=== PATIENT | male | born 1995 | race Caucasian/White ===

== ENCOUNTER 2017-02-24 04:41 | Observation (INO) | payer MEDICAID, OTHER ==
[~2017-02-24] VITALS: Ht 172.7 cm; Wt 75.0 kg
[2017-02-24 05:27] LABS: BASOPHILS # (AUTO) 0.04 x10^3/uL (0-0.1); BASOPHILS % (AUTO) 1 % (0-1); EOSINOPHILS # (AUTO) 0.06 x10^3/uL (0-0.4); EOSINOPHILS % (AUTO) 1 % (1-7); LYMPHOCYTES % (AUTO) 36 % (22-44); MD NO; MEAN CORPUSCULAR HEMOGLOBIN 31.4 pg (27.5-34.5); MEAN CORPUSCULAR HGB CONC 34.4 g/dL (33.2-36.2); MEAN CORPUSCULAR VOLUME 91.2 fL (81-97); MONOCYTES # (AUTO) 0.52 x10^3/uL (0.2-0.8); MONOCYTES % (AUTO) 8 % (2-9); NEUTROPHILS # (AUTO) 3.81 x10^3/uL (1.8-6.8); NEUTROPHILS % (AUTO) 55 % (42-75); PLATELET COUNT 281 x10^3/uL (130-400); RED BLOOD COUNT 4.94 x10^6/uL (4.38-5.82); RED CELL DISTRIBUTION WIDTH 14.3 % (9.4-14.8)
[2017-02-24 05:43] LABS: ALANINE AMINOTRANSFERASE 19 U/L (12-78); ALBUMIN 3.8 g/dL (3.4-5.0); ANION GAP 10 mmol/L (5-15); CALCIUM 8.6 mg/dL (8.5-10.1); CHLORIDE 107 mmol/L (98-107); CREATININE 0.82 mg/dL (0.7-1.3)
[2017-02-24 05:45] LABS: ALKALINE PHOSPHATASE 80 U/L (45-117); BILIRUBIN,TOTAL 0.9 mg/dL (0.2-1.0); TOTAL PROTEIN 7.2 g/dL (6.4-8.2)
[2017-02-24 05:46] LABS: ACETAMINOPHEN < 2 mcg/mL (10-30); SALICYLATE LEVEL < 1.7 mg/dL (2.8-20.0)
[2017-02-24 05:50] LABS: AMPHETAMINE SCREEN, URINE Positive (Negative); BARBITURATE SCREEN, URINE Negative (Negative); BENZODIAZEPINE SCREEN, URINE Negative (Negative); CANNABINOID SCREEN, URINE Positive (Negative); COCAINE SCREEN, URINE Negative (Negative); METHADONE SCREEN, URINE Negative (Negative); OPIATE SCREEN, URINE Negative (Negative)
[2017-02-24] MEDS ORDERED: BACITRACIN ZINC OINT 500U/GM, 0.9 GM ONE ×2 (06:45→17:21)
[2017-02-24] MEDS ORDERED: ONDANSETRON ODT 4 MG PO PRN (08:00)
[2017-02-24] MEDS ORDERED: ACETAMINOPHEN 325 MG TABLET PO PRN (08:00)
[2017-02-24] MEDS ORDERED: POTASSIUM CHLORIDE 20 MEQ TAB.ER.PRT PO ONE (08:00)
[2017-02-24] MEDS ORDERED: POTASSIUM CHLORIDE 20 MEQ TAB.ER.PRT ONE (19:15)
[2017-02-24] MEDS: HALOPERIDOL 5 MG TABLET PO PRN (20:26)
[2017-02-25 14:28] VITALS: BP 107/70
[2017-02-25 20:00] VITALS: BP 99/62
[2017-02-26 08:21] VITALS: BP 84/49
[2017-02-26 19:24] VITALS: BP 127/85
[2017-02-26] MEDS: HALOPERIDOL 5 MG TABLET PO PRN (19:25)
[2017-02-27 07:55] VITALS: BP 97/62
[2017-02-27 19:35] VITALS: BP 150/94
[2017-02-27 20:51] VITALS: BP 120/76
[2017-02-28 08:15] VITALS: BP 101/67
[2017-02-28 19:23] VITALS: BP 115/64
[2017-03-01 08:00] VITALS: BP 95/59
[2017-03-01 19:41] VITALS: BP 101/57
[2017-03-01] MEDS: HALOPERIDOL 5 MG TABLET PO PRN (21:19)
[2017-03-01] MEDS ORDERED: QUETIAPINE 25MG TABLET ONE (23:06)
[2017-03-01] MEDS ORDERED: QUETIAPINE 25MG TABLET PO ONE (23:30)
[2017-03-02 08:15] VITALS: BP 97/60
[2017-03-02 19:27] VITALS: BP 108/68
[2017-03-02] MEDS ORDERED: RISPERIDONE 2 MG TABLET PO SCH (21:00)
[2017-03-03 08:46] VITALS: BP 117/69
== END 2017-03-03 13:28 ==
LOC: ED 06:45 → EDIP 06:59 → 2N 02-25 14:20
PROVIDERS: ADMIT Hospitalist; ATTEND Internal Medicine
DX: R45.851 Suicidal ideations (principal); F20.0 Paranoid schizophrenia; F19.959 Other psychoactive substance use, unspecified with psychoactive substance-induced psychotic disorder, unspecified; F17.200 Nicotine dependence, unspecified, uncomplicated; Z91.14 Patient's other noncompliance with medication regimen; Z91.19 Patient's noncompliance with other medical treatment and regimen; Z91.5 Personal history of self-harm
CPT/HCPCS: 36415; 80053; 80307; 80329; 85025; 99285; G0378; G0479; G0480

== ENCOUNTER 2018-04-13 15:02 | Emergency (ER) | payer MEDICAID, OTHER ==
[~2018-04-13] VITALS: Ht 170.2 cm; Wt 69.0 kg
[2018-04-13 15:30] VITALS: BP 126/85
[2018-04-13 15:47] LABS: BASOPHILS # (AUTO) 0.01 x10^3/uL (0-0.1); BASOPHILS % (AUTO) 0 % (0-1); EOSINOPHILS # (AUTO) 0.06 x10^3/uL (0-0.4); EOSINOPHILS % (AUTO) 1 % (1-7); LYMPHOCYTES # (AUTO) 2.26 x10^3/uL (1-3.4); LYMPHOCYTES % (AUTO) 25 % (22-44); MD NO; MEAN CORPUSCULAR HEMOGLOBIN 30.9 pg (27.5-34.5); MEAN CORPUSCULAR HGB CONC 33.3 g/dL (33.2-36.2); MEAN PLATELET VOLUME 9.4 fL (7.4-10.4); MONOCYTES # (AUTO) 0.54 x10^3/uL (0.2-0.8); MONOCYTES % (AUTO) 6 % (2-9); NEUTROPHILS # (AUTO) 6.04 x10^3/uL (1.8-6.8); NEUTROPHILS % (AUTO) 68 % (42-75); PLATELET COUNT 266 x10^3/uL (130-400); RED BLOOD COUNT 5.29 x10^6/uL (4.38-5.82); RED CELL DISTRIBUTION WIDTH 14.6 % (9.4-14.8)
[2018-04-13 15:58] LABS: ALANINE AMINOTRANSFERASE 22 U/L (12-78); ALBUMIN 4.1 g/dL (3.4-5.0); ANION GAP 5 mmol/L (5-15); CALCIUM 8.8 mg/dL (8.5-10.1); CHLORIDE 106 mmol/L (98-107); CREATININE 0.84 mg/dL (0.7-1.3)
--- NOTE | 2018-04-13 15:58 | NUR ---
VOIDED URINE SPECIMEN PROVIDED. PT AMBUALTORY TO ED ROOM W/OUT INCIDENT, GAIT STEADY. PRISCILA MCCAIN NOW AT BS FOR EXAM.
[2018-04-13 15:59] LABS: ALKALINE PHOSPHATASE 101 U/L (45-117); BILIRUBIN,TOTAL 0.6 mg/dL (0.2-1.0); TOTAL PROTEIN 7.6 g/dL (6.4-8.2)
[2018-04-13 16:00] LABS: ACETAMINOPHEN < 2 mcg/mL (10-30); SALICYLATE LEVEL < 1.7 mg/dL (2.8-20.0)
--- NOTE | 2018-04-13 16:01 | NUR ---
ROOM WAS SECURED, PERSONAL BELONGINGS BAGGED & PLACED IN LOCKER BY MADAI MOON PER KENZIE MOON'S WALLET & CELL PHONE IN WITH BAGGED ITEMS.
--- NOTE | 2018-04-13 16:29 | NUR ---
ASSUMED CARE OF PT, PT RESTING IN BED, ASSESSMENT COMPLETE. PT AOX4 C/O SUICIDAL THOUGHTS WITH PLAN TO CUT WRISTS BUT DENIES FEELING SI AT THIS MOMENT. MEAL TRAY ORDERED. PT STATES HE HAS HX OF SCHIZOPHRENIA, HAS BEEN USING METH, HAS NOT BEEN TAKING HIS ABILIFY.
[2018-04-13 16:40] LABS: AMPHETAMINE SCREEN, URINE Positive (Negative); BARBITURATE SCREEN, URINE Negative (Negative); BENZODIAZEPINE SCREEN, URINE Negative (Negative); CANNABINOID SCREEN, URINE Positive (Negative); COCAINE SCREEN, URINE Negative (Negative); METHADONE SCREEN, URINE Negative (Negative); OPIATE SCREEN, URINE Negative (Negative)
--- NOTE | 2018-04-13 18:31 | NUR ---
NANO HARRIS AT BEDSIDE TO FORM POC, DIET TRAY ORDERED
[2018-04-13] MEDS ORDERED: ZIPRASIDONE 20 MG INJ IM ONE ×2 (19:00→19:46)
== END 2018-04-13 20:03 | disposition home or self-care (01) ==
LOC: ED 19:57
DX: F20.89 Other schizophrenia (principal); F32.9 Major depressive disorder, single episode, unspecified; F15.10 Other stimulant abuse, uncomplicated; F17.200 Nicotine dependence, unspecified, uncomplicated; Z72.9 Problem related to lifestyle, unspecified; Z75.9 Unspecified problem related to medical facilities and other health care; Z91.14 Patient's other noncompliance with medication regimen
CPT/HCPCS: 36415; 80053; 80307; 80329; 85025; 99283; 99284; G0480

== ENCOUNTER 2018-05-30 01:09 | Inpatient (IN) | payer MEDICAID ==
[~2018-05-30] VITALS: Ht 170.2 cm; Wt 68.5 kg
[2018-05-30] MEDS ORDERED: LORazepam 1MG TABLET PO ONE (01:30)
[2018-05-30 01:35] LABS: BASOPHILS # (AUTO) 0.04 x10^3/uL (0-0.1); BASOPHILS % (AUTO) 0 % (0-1); EOSINOPHILS # (AUTO) 0.08 x10^3/uL (0-0.4); EOSINOPHILS % (AUTO) 1 % (1-7); LYMPHOCYTES # (AUTO) 2.79 x10^3/uL (1-3.4); LYMPHOCYTES % (AUTO) 27 % (22-44); MD NO; MEAN CORPUSCULAR HEMOGLOBIN 31.8 pg (27.5-34.5); MEAN CORPUSCULAR HGB CONC 34.5 g/dL (33.2-36.2); MEAN CORPUSCULAR VOLUME 92.1 fL (81-97); MEAN PLATELET VOLUME 9.4 fL (7.4-10.4); MONOCYTES # (AUTO) 0.92 x10^3/uL (0.2-0.8); MONOCYTES % (AUTO) 9 % (2-9); NEUTROPHILS # (AUTO) 6.43 x10^3/uL (1.8-6.8); NEUTROPHILS % (AUTO) 63 % (42-75); PLATELET COUNT 259 x10^3/uL (130-400); RED CELL DISTRIBUTION WIDTH 14.4 % (9.4-14.8)
[2018-05-30] MEDS ORDERED: LORazepam 1MG TABLET ONE ×2 (01:40→22:51)
--- NOTE | 2018-05-30 01:45 | NUR ---
pt here for hearing voices. Pt sas he is tired of hearing them. vss. Pt denies SI/HI. says voices sometimes tells him to harm himself but he doesnt listen. Pt changing into gown and belongings secured.
[2018-05-30 01:46] LABS: ALBUMIN 4.5 g/dL (3.4-5.0); ANION GAP 8 mmol/L (5-15); CALCIUM 8.7 mg/dL (8.5-10.1); CHLORIDE 105 mmol/L (98-107)
[2018-05-30 01:48] LABS: SALICYLATE LEVEL < 1.7 mg/dL (2.8-20.0)
[2018-05-30 01:49] LABS: ALANINE AMINOTRANSFERASE 62 U/L (12-78); ALKALINE PHOSPHATASE 96 U/L (45-117); BILIRUBIN,TOTAL 1.4 mg/dL (0.2-1.0); CREATININE 0.85 mg/dL (0.7-1.3); TOTAL PROTEIN 7.6 g/dL (6.4-8.2)
[2018-05-30 01:52] LABS: ACETAMINOPHEN < 2 mcg/mL (10-30)
--- NOTE | 2018-05-30 03:01 | NUR ---
PT ATTEMPTED TO GIVE UA BUT WAS UNABLE TO URINATE. PT GIVEN WATER AND HE WILL TRY AGAIN.
--- NOTE | 2018-05-30 04:04 | NUR ---
UA SENT TO LAB. PT SLEEPING WITH NO NEEDS AT THIS TIME. CALL LIGHT IN REACH
[2018-05-30 04:29] LABS: AMPHETAMINE SCREEN, URINE Positive (Negative); BARBITURATE SCREEN, URINE Negative (Negative); BENZODIAZEPINE SCREEN, URINE Negative (Negative); CANNABINOID SCREEN, URINE Positive (Negative); COCAINE SCREEN, URINE Negative (Negative); METHADONE SCREEN, URINE Negative (Negative); OPIATE SCREEN, URINE Negative (Negative)
--- NOTE | 2018-05-30 05:00 | NUR ---
PT SLEEPING. PT IN NAD. EVEN RISE AND FALL OF CHEST OBSERVED. PT AROUSES TO VOICE. WAITING TO BE EVALUATED BY TELEPSYCH.
--- NOTE | 2018-05-30 06:02 | NUR ---
PT SLEEPING. PT IN NAD. EVEN RISE AND FALL OF CHEST OBSERVED. PT AROUSES TO VOICE. WAITING TO BE EVALUATED BY TELEPSYCH.
--- NOTE | 2018-05-30 06:15 | NUR ---
REPORT TO SOC. CAMERA AT BEDSIDE. PT INFORMED THAT SOC WILL EVALUATE PT.
--- NOTE | 2018-05-30 06:39 | NUR ---
PT UNABLE TO STAY AWAKE FOR EVALUATION BY SOC. PT TO BE RE EVALUATED IN A FEW HOURS. AWARE
--- NOTE | 2018-05-30 06:50 | NUR ---
Assumed c/o pt from MADAI Jackson. Pt sleeping at this time, awakens to V. Telepsych unit removed from room & will attempt consult again when pt able to stay awake. VS checked, meal tray ordered.
--- NOTE | 2018-05-30 07:45 | NUR ---
Meal tray delivered, pt awakens easily to V. Cooperative at this time.
--- NOTE | 2018-05-30 08:31 | NUR ---
SOC contacted for telepsych eval. Pt is in queue.
--- NOTE | 2018-05-30 10:12 | NUR ---
Telepsych consult complete
--- NOTE | 2018-05-30 10:35 | NUR ---
Recommendation from psychiatrist for inpatient psych admission due to pt now stating he is suicidal & has been depressed & was not being forthcoming with staff here when asked.
--- NOTE | 2018-05-30 10:57 | NUR ---
PACKET FAXED TO [facility] AND [facility]
[2018-05-30] MEDS ORDERED: IBUPROFEN 600 MG TABLET PO PRN (11:30)
[2018-05-30] MEDS ORDERED: OLANZAPINE 10 MG TABLET PO PRN (11:30)
[2018-05-30] MEDS ORDERED: POLYETHYLENE GLYCOL 17 GM PACKET PO PRN (11:30)
[2018-05-30] MEDS ORDERED: ONDANSETRON ODT 4 MG PO PRN (11:30)
[2018-05-30] MEDS ORDERED: BISACODYL 10 MG SUPP PR PRN (11:30)
--- NOTE | 2018-05-30 11:39 | NUR ---
Labs being drawn, pt remains cooperative. Meal tray ordered.
[2018-05-30 11:59] LABS: BASOPHILS # (AUTO) 0.13 x10^3/uL (0-0.1); BASOPHILS % (AUTO) 2 % (0-1); EOSINOPHILS # (AUTO) 0.19 x10^3/uL (0-0.4); EOSINOPHILS % (AUTO) 3 % (1-7); LYMPHOCYTES # (AUTO) 2.58 x10^3/uL (1-3.4); LYMPHOCYTES % (AUTO) 41 % (22-44); MD NO; MEAN CORPUSCULAR HEMOGLOBIN 32.1 pg (27.5-34.5); MEAN CORPUSCULAR HGB CONC 34.4 g/dL (33.2-36.2); MEAN CORPUSCULAR VOLUME 93.2 fL (81-97); MEAN PLATELET VOLUME 9.5 fL (7.4-10.4); MONOCYTES # (AUTO) 0.89 x10^3/uL (0.2-0.8); MONOCYTES % (AUTO) 14 % (2-9); NEUTROPHILS # (AUTO) 2.58 x10^3/uL (1.8-6.8); NEUTROPHILS % (AUTO) 41 % (42-75); PLATELET COUNT 239 x10^3/uL (130-400); RED BLOOD COUNT 4.99 x10^6/uL (4.38-5.82); RED CELL DISTRIBUTION WIDTH 14.4 % (9.4-14.8)
[2018-05-30 12:14] LABS: ANION GAP 6 mmol/L (5-15); CALCIUM 8.9 mg/dL (8.5-10.1); CHLORIDE 104 mmol/L (98-107); CREATININE 0.76 mg/dL (0.7-1.3)
--- NOTE | 2018-05-30 12:22 | NUR ---
Pt moved to 41 for sitter observation. SBAR to MADAI Tolbert.
--- NOTE | 2018-05-30 12:25 | NUR ---
Pt moved to rm 41 from rm 2, report from Ewa AJ. Pt resting in bed with eyes closed, resp even and unlabored, NADN. Room is secured, sitter within eyesight of pt, all safety measures observed.
--- NOTE | 2018-05-30 12:40 | NUR ---
REPORT RECEIVED FROM RAFI AJ. PATIENT ON LEGAL HOLD FOR SUICIDAL IDEATION. ROOM SECURED W/ PSYCH PRECAUTIONS. 1:1 SITTER AT BEDSIDE PATIENT DOES NOT APPEAR ANXIOUS OR INTOXICATED. DOES ADMIT TO INTERMITTENT METH USE. DENIES COMPLAINTS AT THIS TIME. HOWEVER HE DOES REPORT HE IS SUICIDAL WITHOUT PLAN. REPORT " I FEEL OVERWHELMED" GPROVIDED WITH SUICIDE PRECAUTIONS LUNCH TRAY
--- NOTE | 2018-05-30 13:30 | NUR ---
PATIENT A LEGAL HOLD FOR SUICIDAL IDEATION. ROOM SECURED W/ PSYCH PRECAUTIONS 1:1 SITTER AT BEDSIDE
--- NOTE | 2018-05-30 14:45 | NUR ---
PATIENT A LEGAL HOLD FOR SUICIDAL IDEATION. ROOM SECURED W/ PSYCH PRECAUTIONS 1:1 SITTER AT BEDSIDE
--- NOTE | 2018-05-30 15:50 | NUR ---
PATIENT A LEGAL HOLD FOR SUICIDAL IDEATION. ROOM SECURED W/ PSYCH PRECAUTIONS 1:1 SITTER AT BEDSIDE
--- NOTE | 2018-05-30 17:20 | NUR ---
PATIENT A LEGAL HOLD FOR SUICIDAL IDEATION. ROOM SECURED W/ PSYCH PRECAUTIONS 1:1 SITTER AT BEDSIDE
--- NOTE | 2018-05-30 19:20 | NUR ---
PATIENT A LEGAL HOLD FOR SUICIDAL IDEATION. ROOM SECURED W/ PSYCH PRECAUTIONS 1:1 SITTER AT BEDSIDE REPORT TO ROSINA AJ
--- NOTE | 2018-05-30 19:58 | NUR ---
PT RESTING IN GURNEY, AWAKENS EASILY. DRINKS PROVIDED, DENIES OTHER NEEDS AT THIS TIME.
[2018-05-30] MEDS ORDERED: NICOTINE 7 MG/24 HR PATCH.TD24 ONE (21:06)
[2018-05-30] MEDS: NICOTINE 7 MG/24 HR PATCH.TD24 TD SCH (21:10)
--- NOTE | 2018-05-30 21:10 | NUR ---
NICOTINE PATCH APPLIED, SEE MAR. NO OTHER NEEDS AT THIS TIME.
--- NOTE | 2018-05-30 22:25 | NUR ---
SNACKS AND DRINKS PROVIDED TO PT. NO OTHER NEEDS AT THIS TIME.
--- NOTE | 2018-05-30 22:46 | NUR ---
PT WAS UP AMBULATING IN ROOM, STATES HE FEELS ANXIOUS & UNABLE TO SLEEP. WILL MEDICATE WITH ATIVAN PER PRN ORDERS.
[2018-05-30] MEDS: LORazepam 1MG TABLET PO PRN (22:53)
[2018-05-30] MEDS ORDERED: ATIVAN PO (23:00)
[2018-05-30] MEDS ORDERED: OLAN10TA3 PO (23:00)
--- NOTE | 2018-05-31 00:09 | NUR ---
PT SLEEPING IN [facility], BREATHING WNL.
--- NOTE | 2018-05-31 01:15 | NUR ---
PT SLEEPING IN BED, BREATHING WNL.
--- NOTE | 2018-05-31 02:53 | NUR ---
NO CHANGE IN STATUS; PT RESTING QUIETLY IN BED, BREATHING WNL, SITTER OUTSIDE ROOM.
--- NOTE | 2018-05-31 03:22 | NUR ---
LATE NOTE ENTERY FOR 299: Recieved bedside report from MADAI Lara. All questions answered. Assuming care of pt. Pt sleeping on gurney. Pt has even chest rise and fall. NADN. All safety measures in place. Sitter near doorway in direct line of sight for observation.
--- NOTE | 2018-05-31 04:43 | NUR ---
Pt resting on hospital bed sleeping. NADN. Pt has even chest rise and fall. No needs expressed at this time. Sitter near doorway in direct line of sight for observation.
--- NOTE | 2018-05-31 05:54 | NUR ---
Pt resting asleep on hospital bed. NADN. Pt has even chest rise and fall. Sitter near doorway in direct line of sight for observation.
--- NOTE | 2018-05-31 06:24 | NUR ---
REPORT RECEIVED FROM MADAI MOON, ASSUMED CARE OF PT. PT MOVED TO ROOM 3, SITTER OTSIDE DOOR WITHIN VIEW OF PT
--- NOTE | 2018-05-31 06:24 | NUR ---
Provided report to MADAI Palacios. All questions answered. MADAI Palacios assuming care of pt. Pt transfered from ED room 41 to ED room 3 on hospital bed.
--- NOTE | 2018-05-31 07:01 | NUR ---
RECEIVED REPORT FROM TASIA FUNG RN.
--- NOTE | 2018-05-31 07:42 | NUR ---
PT RESTING IN BED. NADN. SITTER REMAINS AT BEDSIDE. ROOM REMAINS SECURE.
--- NOTE | 2018-05-31 08:30 | NUR ---
PT RESTING IN BED. PROVIDED W/ BREAKFAST MEAL TRAY. BRUCE. SITTER REMAINS AT BEDSIDE. ROOM REMAINS SECURE.
--- NOTE | 2018-05-31 09:29 | NUR ---
PT RESTING IN BED. NADN. SITTER REMAINS AT BEDSIDE. ROOM REMAINS SECURE.
--- NOTE | 2018-05-31 10:51 | NUR ---
PT RESTING IN BED. NADN. SITTER REMAINS AT BEDSIDE. ROOM REMAINS SECURE.
[2018-05-31] MEDS ORDERED: NICOTINE 7 MG/24 HR PATCH.TD24 ONE (11:53)
[2018-05-31] MEDS: NICOTINE 7 MG/24 HR PATCH.TD24 TD SCH (11:53)
--- NOTE | 2018-05-31 12:02 | NUR ---
PT RESTING IN BED. NADN. SITTER AT BEDSIDE. ROOM REMAINS SECURE. PT MEDICATED PER APR.
--- NOTE | 2018-05-31 12:39 | NUR ---
PT PROVIDED W/ LUNCH TRAY. PT RESTING IN BED. SITTER REMAINS AT BEDSIDE. ROOM REMAINS SECURE.
--- NOTE | 2018-05-31 13:17 | NUR ---
PT RESTING IN BED. NADN. SITTER AT BEDSIDE. ROOM REMAINS SECURE.
--- NOTE | 2018-05-31 15:20 | NUR ---
PT RESTING IN BED. NADN. SITTER AT BEDSIDE. ROOM REMAINS SECURE. PT MEDICATED PER APR. PROVIDED W/ SNACK.
--- NOTE | 2018-05-31 16:36 | NUR ---
REPORT GIVEN TO NAV MAN RN. ALL QUESTIONS ANSWERED. AWAITING PT TRANSPORT.
--- NOTE | 2018-05-31 16:43 | NUR ---
PT PROVIDED W/ DINNER TRAY. PT ALSO TRANSPORTED TO RM 261.
[2018-05-31 16:45] VITALS: BP 112/68
[2018-05-31 17:16] VITALS: BP 112/68
[2018-05-31 19:06] VITALS: BP 93/54
[2018-05-31] MEDS: LORazepam 1MG TABLET PO PRN (20:02)
[2018-06-01] MEDS: LORazepam 1MG TABLET PO PRN ×2 (04:07→21:37)
[2018-06-01 08:59] VITALS: BP 111/76
[2018-06-01] MEDS: NICOTINE 7 MG/24 HR PATCH.TD24 TD SCH (11:30)
[2018-06-01 19:54] VITALS: BP 101/61
[2018-06-02 06:35] LABS: ALANINE AMINOTRANSFERASE 31 U/L (12-78); ALBUMIN 3.6 g/dL (3.4-5.0); ANION GAP 6 mmol/L (5-15); CALCIUM 8.4 mg/dL (8.5-10.1); CHLORIDE 107 mmol/L (98-107); CREATININE 0.71 mg/dL (0.7-1.3)
[2018-06-02 06:38] LABS: ALKALINE PHOSPHATASE 94 U/L (45-117); BILIRUBIN,TOTAL 0.4 mg/dL (0.2-1.0); TOTAL PROTEIN 6.4 g/dL (6.4-8.2)
[2018-06-02 07:52] VITALS: BP 102/64
[2018-06-02] MEDS: LORazepam 1MG TABLET PO PRN ×3 (11:47→23:20)
[2018-06-02] MEDS: NICOTINE 7 MG/24 HR PATCH.TD24 TD SCH (11:47)
[2018-06-02 19:12] VITALS: BP 108/63
[2018-06-03 07:38] VITALS: BP 90/56
[2018-06-03] MEDS: LORazepam 1MG TABLET PO PRN (09:32)
[2018-06-03] MEDS: NICOTINE 7 MG/24 HR PATCH.TD24 TD SCH (11:38)
[2018-06-03] MEDS ORDERED: NICO-485 TD (12:03)
== END 2018-06-03 13:30 | DRG 885 ==
LOC: ED 07:33 → EDIP 10:40 → INTOOBSV 10:40 → OBSVTOIN 11:38 → 2N 05-31 16:47
PROVIDERS: ADMIT Internal Medicine; ATTEND Internal Medicine
DX: F25.9 Schizoaffective disorder, unspecified (principal); F32.0 Major depressive disorder, single episode, mild; R17 Unspecified jaundice; R45.851 Suicidal ideations; F15.151 Other stimulant abuse with stimulant-induced psychotic disorder with hallucinations; F12.90 Cannabis use, unspecified, uncomplicated; F17.210 Nicotine dependence, cigarettes, uncomplicated; R45.84 Anhedonia; T43.625A Adverse effect of amphetamines, initial encounter; Y92.89 Other specified places as the place of occurrence of the external cause; Z81.8 Family history of other mental and behavioral disorders; Z63.8 Other specified problems related to primary support group
CPT/HCPCS: 36415; 80048; 80053; 80307; 80329; 85025; 99285; G0378; G0480

== ENCOUNTER 2018-07-13 17:27 | Emergency (ER) | payer MEDICAID ==
[~2018-07-13 17:27] MED LIST: ATIVAN PO; NICO-485 TD; OLAN10TA3 PO
--- NOTE | 2018-07-13 18:08 | NUR ---
NIL X1
--- NOTE | 2018-07-13 18:25 | NUR ---
NIL X2@1825 IN TRIAGE.
--- NOTE | 2018-07-13 18:35 | NUR ---
NIL X2@1835 IN TRIAGE.
== END 2018-07-13 18:38 | disposition left against medical advice (07) ==
LOC: ED 18:32
DX: Z53.21 Procedure and treatment not carried out due to patient leaving prior to being seen by health care provider (principal)

== ENCOUNTER 2018-07-14 08:10 | Inpatient (IN) | payer MEDICAID ==
[~2018-07-14] VITALS: Ht 170.2 cm; Wt 74.9 kg
--- NOTE | 2018-07-14 08:52 | NUR ---
PT AMBULATORY TO ROOM 2 W/ C/O PARANOIA AND STATING THAT SOMETIMES H HEARS VOICES AND PEOPLE ARE TALKING ABOUT HIM. PT DENIES SI/HI. STATES HE IS ON THORAZINE BUT MEDICATION IS NOT WORKING. PT RESTING AT [facility]. BRUCE.
[2018-07-14] MEDS ORDERED: LORazepam 1MG TABLET PO ONE (09:00)
--- NOTE | 2018-07-14 09:04 | NUR ---
ROOM SECURED. PERSONAL BELONGINGS BAG 1 OF 1 PLACED IN SECURE LOCKER.
[2018-07-14 09:19] LABS: BASOPHILS # (AUTO) 0.05 x10^3/uL (0-0.1); BASOPHILS % (AUTO) 1 % (0-1); EOSINOPHILS # (AUTO) 0.07 x10^3/uL (0-0.4); EOSINOPHILS % (AUTO) 1 % (1-7); LYMPHOCYTES # (AUTO) 2.56 x10^3/uL (1-3.4); LYMPHOCYTES % (AUTO) 26 % (22-44); MD NO; MEAN CORPUSCULAR HGB CONC 34.7 g/dL (33.2-36.2); MEAN CORPUSCULAR VOLUME 92.1 fL (81-97); MEAN PLATELET VOLUME 8.9 fL (7.4-10.4); MONOCYTES # (AUTO) 0.65 x10^3/uL (0.2-0.8); MONOCYTES % (AUTO) 7 % (2-9); NEUTROPHILS # (AUTO) 6.46 x10^3/uL (1.8-6.8); NEUTROPHILS % (AUTO) 66 % (42-75); PLATELET COUNT 274 x10^3/uL (130-400); RED BLOOD COUNT 5.28 x10^6/uL (4.38-5.82); RED CELL DISTRIBUTION WIDTH 13.7 % (9.4-14.8)
[2018-07-14 09:30] LABS: ALBUMIN 4.4 g/dL (3.4-5.0); ANION GAP 7 mmol/L (5-15); CALCIUM 8.5 mg/dL (8.5-10.1); CHLORIDE 106 mmol/L (98-107)
[2018-07-14 09:33] LABS: ACETAMINOPHEN < 2 mcg/mL (10-30); SALICYLATE LEVEL < 1.7 mg/dL (2.8-20.0)
[2018-07-14 09:34] LABS: BILIRUBIN,TOTAL 0.8 mg/dL (0.2-1.0); CREATININE 0.68 mg/dL (0.7-1.3)
[2018-07-14 09:35] LABS: ALANINE AMINOTRANSFERASE 26 U/L (12-78); ALKALINE PHOSPHATASE 105 U/L (45-117); TOTAL PROTEIN 7.7 g/dL (6.4-8.2)
--- NOTE | 2018-07-14 09:36 | NUR ---
PT ATTEMPTED TO PROVIDE UA SAMPLE. UNABLE TO DO SO AT THIS TIME.
[2018-07-14] MEDS ORDERED: LORazepam 1MG TABLET ONE (09:40)
--- NOTE | 2018-07-14 10:03 | NUR ---
UA COLLECTED, LABELED, AND WALKED TO LAB. SITTER NOW AT BEDSIDE.
--- NOTE | 2018-07-14 10:16 | NUR ---
PT PROVIDED W/ SI BREAKFAST MEAL TRAY.
[2018-07-14 10:25] LABS: AMPHETAMINE SCREEN, URINE Negative (Negative); BARBITURATE SCREEN, URINE Negative (Negative); BENZODIAZEPINE SCREEN, URINE Negative (Negative); CANNABINOID SCREEN, URINE Negative (Negative); COCAINE SCREEN, URINE Negative (Negative); METHADONE SCREEN, URINE Negative (Negative); OPIATE SCREEN, URINE Negative (Negative)
--- NOTE | 2018-07-14 11:41 | NUR ---
REPORT GIVEN TO MADAI BLISS.
--- NOTE | 2018-07-14 11:43 | NUR ---
REPORT FROM MADAI AHUMADA. CARE ASSUMED. SOC COMPUTER AT BEDSIDE FOR PETERD[facility] NAAASHLY IN [facility].
--- NOTE | 2018-07-14 11:58 | NUR ---
REPORT TO SOC
--- NOTE | 2018-07-14 12:10 | NUR ---
SOC SPEAKING W/ PT.
--- NOTE | 2018-07-14 13:30 | NUR ---
RESTING COMFORTABLY IN ROOM. LUNCH TRAY TO PT. SITTER REMAINS IN HALLWAY.
--- NOTE | 2018-07-14 15:15 | NUR ---
Spoke to MADAI Mcgarry for an SBAR report, she stated that the hospitalist was currently at bedside.
[2018-07-14] MEDS ORDERED: BISACODYL 10 MG SUPP PR PRN (15:30)
[2018-07-14] MEDS ORDERED: POLYETHYLENE GLYCOL 17 GM PACKET PO PRN (15:30)
--- NOTE | 2018-07-14 15:32 | NUR ---
Called and gave them room #261
[2018-07-14] MEDS ORDERED: LORazepam 0.5MG TABLET ONE (15:35)
[2018-07-14] MEDS: LORazepam 0.5MG TABLET PO PRN ×3 (15:36→20:49)
[2018-07-14 16:04] VITALS: BP 122/81
[2018-07-14] MEDS: NICOTINE 14MG/24 HR PATCH.TD24 TD SCH (16:18)
[2018-07-14 19:55] VITALS: BP 130/85
[2018-07-14] MEDS ORDERED: OLANZAPINE 10 MG TABLET PO SCH (21:00)
[2018-07-15 07:52] VITALS: BP 123/88
[2018-07-15] MEDS ORDERED: BENZ1TAB61 PO (15:46)
[2018-07-15] MEDS ORDERED: CHLO200T2 PO (15:46)
[2018-07-15] MEDS: NICOTINE 14MG/24 HR PATCH.TD24 TD SCH (16:00)
[2018-07-15 19:15] VITALS: BP 109/72
[2018-07-15] MEDS: CHLORPROMAZINE 100MG TAB PO SCH (20:49)
[2018-07-15] MEDS: ACETAMINOPHEN 325 MG TABLET PO PRN (20:54)
[2018-07-15] MEDS: DIPHENHYDRAMINE 50 MG CAPSULE PO PRN (21:21)
[2018-07-16] MEDS: BENZTROPINE 1 MG TABLET PO SCH (10:06)
[2018-07-16] MEDS: CHLORPROMAZINE 100MG TAB PO SCH ×3 (10:06→20:08)
[2018-07-16] MEDS: NICOTINE 14MG/24 HR PATCH.TD24 TD SCH (15:30)
[2018-07-16 19:48] VITALS: BP 118/75
[2018-07-16] MEDS: ACETAMINOPHEN 325 MG TABLET PO PRN (23:18)
[2018-07-17 07:56] VITALS: BP 95/56
[2018-07-17] MEDS: BENZTROPINE 1 MG TABLET PO SCH (08:34)
[2018-07-17] MEDS: CHLORPROMAZINE 100MG TAB PO SCH ×3 (08:34→20:22)
[2018-07-17] MEDS: DOCUSATE 100 MG CAPSULE PO PRN (12:34)
[2018-07-17] MEDS: NICOTINE 14MG/24 HR PATCH.TD24 TD SCH (15:30)
[2018-07-17 19:22] VITALS: BP 117/74
[2018-07-18 07:35] VITALS: BP 101/67
[2018-07-18] MEDS: CHLORPROMAZINE 100MG TAB PO SCH ×3 (07:58→21:06)
[2018-07-18] MEDS: BENZTROPINE 1 MG TABLET PO SCH (07:58)
[2018-07-18] MEDS: NICOTINE 14MG/24 HR PATCH.TD24 TD SCH (15:30)
[2018-07-18 19:50] VITALS: BP 102/69
[2018-07-18] MEDS: DIPHENHYDRAMINE 50 MG CAPSULE PO PRN (21:06)
[2018-07-19 08:29] VITALS: BP 103/66
[2018-07-19] MEDS: CHLORPROMAZINE 100MG TAB PO SCH ×3 (08:40→20:23)
[2018-07-19] MEDS: BENZTROPINE 1 MG TABLET PO SCH (08:41)
[2018-07-19] MEDS: ACETAMINOPHEN 325 MG TABLET PO PRN ×2 (16:33→21:26)
[2018-07-19] MEDS: NICOTINE 14MG/24 HR PATCH.TD24 TD SCH (16:35)
[2018-07-19] MEDS ORDERED: LORazepam 0.5MG TABLET ONE (17:21)
[2018-07-19] MEDS: LORazepam 0.5MG TABLET PO PRN (17:23)
[2018-07-19] MEDS: DOCUSATE 100 MG CAPSULE PO PRN (17:27)
[2018-07-19 19:23] VITALS: BP 103/69
[2018-07-19] MEDS: DIPHENHYDRAMINE 50 MG CAPSULE PO PRN (20:23)
[2018-07-20] MEDS: CHLORPROMAZINE 100MG TAB PO SCH ×3 (07:58→19:56)
[2018-07-20] MEDS: BENZTROPINE 1 MG TABLET PO SCH (07:58)
[2018-07-20 08:20] VITALS: BP 97/68
[2018-07-20] MEDS: ACETAMINOPHEN 325 MG TABLET PO PRN ×3 (11:39→19:56)
[2018-07-20] MEDS: LORazepam 0.5MG TABLET PO PRN ×2 (13:36→20:00)
[2018-07-20] MEDS: NICOTINE 14MG/24 HR PATCH.TD24 TD SCH (15:36)
[2018-07-20 19:28] VITALS: BP 139/87
[2018-07-20] MEDS: DIPHENHYDRAMINE 50 MG CAPSULE PO PRN (20:01)
[2018-07-21] MEDS: ACETAMINOPHEN 325 MG TABLET PO PRN ×4 (00:03→20:42)
[2018-07-21] MEDS: LORazepam 0.5MG TABLET PO PRN ×3 (01:32→20:42)
[2018-07-21 07:47] VITALS: BP 107/71
[2018-07-21] MEDS: BENZTROPINE 1 MG TABLET PO SCH (09:28)
[2018-07-21] MEDS: CHLORPROMAZINE 100MG TAB PO SCH ×3 (09:29→20:42)
[2018-07-21] MEDS: DOCUSATE 100 MG CAPSULE PO PRN (10:50)
[2018-07-21] MEDS: NICOTINE 14MG/24 HR PATCH.TD24 TD SCH (15:30)
[2018-07-21 19:34] VITALS: BP 105/62
[2018-07-22 07:53] VITALS: BP 121/77
[2018-07-22] MEDS: BENZTROPINE 1 MG TABLET PO SCH (08:27)
[2018-07-22] MEDS: CHLORPROMAZINE 100MG TAB PO SCH (08:27)
== END 2018-07-22 10:10 | DRG 885 ==
LOC: ED 09:19 → EDIP 12:58 → 2N 15:51
PROVIDERS: ADMIT Internal Medicine; ATTEND Internal Medicine
DX: F20.9 Schizophrenia, unspecified (principal); R45.851 Suicidal ideations; F32.9 Major depressive disorder, single episode, unspecified; F17.210 Nicotine dependence, cigarettes, uncomplicated; Z81.8 Family history of other mental and behavioral disorders; Z91.14 Patient's other noncompliance with medication regimen
CPT/HCPCS: 36415; 80053; 80307; 85025; 99285; G0378

== ENCOUNTER 2019-03-24 13:36 | Emergency (ER) | payer MEDICAID ==
[~2019-03-24] VITALS: Ht 167.6 cm; Wt 75.0 kg
[~2019-03-24 13:36] MED LIST changes: +BENZ1TAB61 PO; +CHLO200T2 PO
[2019-03-24 13:49] VITALS: BP 143/77
--- NOTE | 2019-03-24 13:57 | NUR ---
BIB [facility], PT SEEN ACTING INAPPROPRIATE, PINPOINT PUPILS, PT HIGH ON LSD. PER EMS REPORT PT WITH HI CAR GREASER. PT NOW ON ADMISSION STATES HE IS HAVING SI. STATES "IM GOING TO BANG MY HEAD AGAINST THE WALL UNTIL I CANT ANYMORE" PT STATES HE HAS HX OF SA IN THE PAST. PT PUT IN HOSPITAL GOWN, ALL BELONGINGS REMOVED AND PLACED IN LOCKER, 1 LABELED BAG. UDS COLLECTED AND SENT. PT IN SECURE RM. 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
[2019-03-24 14:25] LABS: BASOPHILS # (AUTO) 0.03 x10^3/uL (0-0.1); BASOPHILS % (AUTO) 0 % (0-1); EOSINOPHILS # (AUTO) 0.05 x10^3/uL (0-0.4); EOSINOPHILS % (AUTO) 0 % (1-7); LYMPHOCYTES # (AUTO) 3.15 x10^3/uL (1-3.4); LYMPHOCYTES % (AUTO) 23 % (22-44); MD NO; MEAN CORPUSCULAR HEMOGLOBIN 31.2 pg (27.5-34.5); MEAN CORPUSCULAR HGB CONC 33.5 g/dL (33.2-36.2); MEAN CORPUSCULAR VOLUME 92.9 fL (81-97); MEAN PLATELET VOLUME 9.5 fL (7.4-10.4); MONOCYTES # (AUTO) 1.42 x10^3/uL (0.2-0.8); MONOCYTES % (AUTO) 11 % (2-9); NEUTROPHILS # (AUTO) 8.89 x10^3/uL (1.8-6.8); NEUTROPHILS % (AUTO) 66 % (42-75); PLATELET COUNT 277 x10^3/uL (130-400); RED BLOOD COUNT 5.02 x10^6/uL (4.38-5.82); RED CELL DISTRIBUTION WIDTH 14.6 % (9.4-14.8)
[2019-03-24 14:29] LABS: MICROSCOPIC NOT IND
[2019-03-24 14:33] LABS: CULTURE INDICATED? NO
[2019-03-24 14:37] LABS: ALANINE AMINOTRANSFERASE 98 U/L (12-78); ALBUMIN 4.1 g/dL (3.4-5.0); ANION GAP 5 mmol/L (5-15); CALCIUM 9.1 mg/dL (8.5-10.1); CHLORIDE 108 mmol/L (98-107)
[2019-03-24 14:40] LABS: ALKALINE PHOSPHATASE 117 U/L (45-117); BILIRUBIN,TOTAL 0.4 mg/dL (0.2-1.0); TOTAL PROTEIN 7.8 g/dL (6.4-8.2)
[2019-03-24 14:41] LABS: SALICYLATE LEVEL < 1.7 mg/dL (2.8-20.0)
[2019-03-24 14:43] LABS: AMPHETAMINE SCREEN, URINE Negative (Negative); BARBITURATE SCREEN, URINE Negative (Negative); BENZODIAZEPINE SCREEN, URINE Negative (Negative); COCAINE SCREEN, URINE Negative (Negative); METHADONE SCREEN, URINE Negative (Negative)
[2019-03-24 14:52] LABS: CANNABINOID SCREEN, URINE Positive (Negative); OPIATE SCREEN, URINE Negative (Negative)
--- NOTE | 2019-03-24 14:55 | NUR ---
PT BECOMING INCREASINGLY AGITATED, AGRESSIVE GESTURES AND BEHAVIORS. UNABLE TO CALM PT, PT LEAVING HIS RM MULTIPLE TIMES, PT INSTRUTED TO STAY IN RM FOR HIS SAFETY AND THAT OF STAFFS. PT SWINGING ARMS AGGRESIVELY. SECURITY CALLED TO RESTRAIN PT, PT PLACED IN 2 PT HARD ONE ARM AND ONE LEG RESTRAINTS. ORDER RECIEVED FOR ROMIE. WHILE GETTING MED PT QUICKLY BEGAN KICKING HIS LEGS AND BEGINNING TO REMOVED RESTRAINTS PT ALSO MOVED BED WITH HIS JERKING BODY MOVEMENTS OUT OF VIEW OF CAMERA. SECURITY CALLED AGAIN AND PT PLACED IN 4 PTS. PT MEDICATED PER APR.
[2019-03-24] MEDS ORDERED: ZIPRASIDONE 20 MG INJ IM ONE (15:00)
--- NOTE | 2019-03-24 16:00 | NUR ---
SECURITY CALLED TO LOOSEN RESTRAINTS, PT STATES HE WILL BE MORE COOPERATIVE. TWO HARD RESTRAINTS REMOVED. WILL ANUM MEDEIROS NOTED
--- NOTE | 2019-03-24 17:02 | NUR ---
RESTRAINTS DC'D AT 1700
--- NOTE | 2019-03-24 19:07 | NUR ---
BEDSIDE REPORT RECIEVED FROM MADAI READ
--- NOTE | 2019-03-24 19:30 | NUR ---
PT AWAKE AND AMBULATORY TO THE BATHROOM. PT CALM AND COOPERATIVE. PT BEING RESPECTFUL AND POLITE. MEAL TRAY PROVIDED. PT A+OX4, DENYING SI AND HI.
[2019-03-24] MEDS ORDERED: HALOPERIDOL 5 MG TABLET PO PRN (20:00)
[2019-03-24] MEDS ORDERED: HALOPERIDOL 5 MG/ML IM PRN (20:00)
--- NOTE | 2019-03-24 20:06 | NUR ---
BOBY MCGHEEN IN TO REASSESS PT. SHE DC'D HOLD AND PT TO BE DISCHARGED.
[2019-03-24] MEDS ORDERED: OLANZAPINE 5 MG TABLET PO SCH (21:00)
== END 2019-03-24 20:44 | disposition home or self-care (01) ==
LOC: ED 16:05
DX: F20.1 Disorganized schizophrenia (principal)
CPT/HCPCS: 36415; 80053; 80307; 81003; 85025; 96372; 99283; J3486

== ENCOUNTER 2019-03-26 08:52 | Emergency (ER) | payer MEDICAID ==
[~2019-03-26] VITALS: Ht 167.6 cm; Wt 70.0 kg
--- NOTE | 2019-03-26 09:20 | NUR ---
PRESENTS VIA EMS FROM [facility] FOR ACUITE SUICIDAL STATEMENTS. WHEN PATIENT ASKED TO CLARIFY HE SAID " I JUST TOLD THEM I WAS SUICIDAL SO I COULD GO TO THE ER TO GET MY HEADACHE FIXED." DENIES SI/PLAN AT THIS TIME. DOES SEEM RESTLESS/HYPERVERBAL. BUT PLEASANT AND INTERACTIVE POC CLARIFIED WITH PROVIDER: PLACED ON 72 PSYCHIATRIC HOLD BY PRIOR PSYCHIATRIC FACILITY...WILL CONTINUE PSYCHIATRIC LEVEL OF CARE (SITTER/PSYCHIATRIC PRECAUTIONS IN ROOM/BELONG INVENTORY, ETC)...FOR NOW. TO TREAT HEDACHE AND ADMIN MILD SEDATIVE TO CALM THEN REASSESS FOR D/C OF HOLD THEN DISCHARGE HOME
[2019-03-26] MEDS ORDERED: OLANZAPINE 5 MG TABLET PO ONE (09:30)
[2019-03-26] MEDS ORDERED: PLEASE ENTER HEIGHT AND WEIGHT MC SCH (09:30)
[2019-03-26] MEDS ORDERED: LORazepam 1MG TABLET PO ONE (09:30)
[2019-03-26 09:34] VITALS: BP 133/90
[2019-03-26 09:54] LABS: BASOPHILS # (AUTO) 0.04 x10^3/uL (0-0.1); BASOPHILS % (AUTO) 0 % (0-1); EOSINOPHILS # (AUTO) 0.11 x10^3/uL (0-0.4); EOSINOPHILS % (AUTO) 1 % (1-7); LYMPHOCYTES # (AUTO) 2.53 x10^3/uL (1-3.4); LYMPHOCYTES % (AUTO) 22 % (22-44); MD NO; MEAN CORPUSCULAR HEMOGLOBIN 31.4 pg (27.5-34.5); MEAN CORPUSCULAR HGB CONC 33.9 g/dL (33.2-36.2); MEAN CORPUSCULAR VOLUME 92.8 fL (81-97); MEAN PLATELET VOLUME 9.3 fL (7.4-10.4); MONOCYTES # (AUTO) 0.73 x10^3/uL (0.2-0.8); MONOCYTES % (AUTO) 6 % (2-9); NEUTROPHILS # (AUTO) 8.08 x10^3/uL (1.8-6.8); NEUTROPHILS % (AUTO) 70 % (42-75); PLATELET COUNT 252 x10^3/uL (130-400); RED BLOOD COUNT 4.67 x10^6/uL (4.38-5.82); RED CELL DISTRIBUTION WIDTH 14.6 % (9.4-14.8)
[2019-03-26 10:03] LABS: ALANINE AMINOTRANSFERASE 65 U/L (12-78); ALBUMIN 3.5 g/dL (3.4-5.0); ANION GAP 8 mmol/L (5-15); CALCIUM 8.1 mg/dL (8.5-10.1); CHLORIDE 102 mmol/L (98-107); CREATININE 0.74 mg/dL (0.7-1.3)
[2019-03-26 10:04] LABS: SALICYLATE LEVEL < 1.7 mg/dL (2.8-20.0)
[2019-03-26 10:06] LABS: ALKALINE PHOSPHATASE 99 U/L (45-117); TOTAL PROTEIN 6.8 g/dL (6.4-8.2)
[2019-03-26] MEDS ORDERED: ACETAMINOPHEN 325 MG TABLET ONE (10:25)
[2019-03-26] MEDS ORDERED: LORazepam 1MG TABLET ONE (10:25)
[2019-03-26] MEDS ORDERED: ACETAMINOPHEN 325 MG TABLET PO ONE (10:30)
--- NOTE | 2019-03-26 10:30 | NUR ---
POC CLARIFIED WITH ER MD: ADMIN ATIVAN AND TYLENOL. HOLD ZYPREXA NOT RESTLESS BEFORE. WILL ALLOW TO CALM DOWN THEN RE-EVAL WITH HOPE TO D/C LATER THIS MORNING
[2019-03-26 10:31] LABS: AMPHETAMINE SCREEN, URINE Negative (Negative); BARBITURATE SCREEN, URINE Negative (Negative); BENZODIAZEPINE SCREEN, URINE Negative (Negative); CANNABINOID SCREEN, URINE Positive (Negative); COCAINE SCREEN, URINE Negative (Negative); METHADONE SCREEN, URINE Negative (Negative); OPIATE SCREEN, URINE Negative (Negative)
--- NOTE | 2019-03-26 10:38 | NUR ---
MEDICATED PER EMAR WITH CLARIFICATION-PATIENT REPORTS YEAH i HAVE SCHZOPHRENIA NAD I HEAR VOICES. I'M NOT HEARING ANYTHING NOW THOUGH." REPORTS HE IS SUPPOSED TO TAKE DAILY MEDS. BUT HER DOESN'T KNOW WHAT THEY ARE BUT I TOOK THEM LIKE I WAS SUPPOSED TO LAST NIGHT. REPORTS " I HAVE NO PROBLEM TAKING THEM THOUGH."
--- NOTE | 2019-03-26 11:27 | NUR ---
PATIENT NOW CALM ENOUGH TO REST FOR AWHILE (RESTING AT THIS TIME ). WILL ALLOW TO REST FOR A FEW MOMENTS LONGER THEN WILL DISCHARGE HOME (MD HAS PRINTED PAPERWORK ALREADY)
== END 2019-03-26 12:13 | disposition home or self-care (01) ==
LOC: ED 09:20
DX: F39 Unspecified mood [affective] disorder (principal); F25.9 Schizoaffective disorder, unspecified; F16.10 Hallucinogen abuse, uncomplicated; F13.10 Sedative, hypnotic or anxiolytic abuse, uncomplicated
CPT/HCPCS: 36415; 80053; 80307; 85025; 99284

== ENCOUNTER 2019-06-19 20:37 | Emergency (ER) | payer SELFPAY ==
[~2019-06-19] VITALS: Ht 162.6 cm; Wt 76.1 kg
[2019-06-19 20:40] VITALS: BP 121/84
--- NOTE | 2019-06-19 21:10 | NUR ---
PT REPORT VAGUE PSYCHIATRIC SYMPTOMS TO THIS RN, STATES HE JUST WANTS TO GO TO [facility], BUT IT IS A FAR WALK
--- NOTE | 2019-06-19 21:22 | NUR ---
PT GIVEN DC PAPERWORK AND TAXI VOUCHER, STATES HE IS COMFORTABLE WITH PLAN OF CARE
== END 2019-06-19 21:29 | disposition home or self-care (01) ==
LOC: ED 21:07
DX: F32.0 Major depressive disorder, single episode, mild (principal); F10.129 Alcohol abuse with intoxication, unspecified; F12.129 Cannabis abuse with intoxication, unspecified; Z72.9 Problem related to lifestyle, unspecified; Y90.9 Presence of alcohol in blood, level not specified
CPT/HCPCS: 99284

== ENCOUNTER 2019-07-23 03:33 | Emergency (ER) | payer MEDICAID ==
[~2019-07-23] VITALS: Ht 167.6 cm; Wt 71.0 kg
[2019-07-23 03:37] VITALS: BP 147/94
[2019-07-23] MEDS ORDERED: FLUO20CA19 PO (03:43)
[2019-07-23] MEDS ORDERED: OLAN15TA3 PO (03:43)
--- NOTE | 2019-07-23 03:48 | NUR ---
PT TO ED STATES "I JUST WANT TO GET MORE PENITENTIARY CARE, MAYBE AT [facility]". PT REPORTS RECENTLY BEING RELEASED FROM [facility], LAST METH USE LAST NIGHT. PT REQUESTING REFERRAL TO [facility]. ERP IN ROOM TO EVAL PT. PT DENIES SI/HI. STATES "I DONT WANT THE TESTS I JUST WANT A REFERAL".
--- NOTE | 2019-07-23 04:15 | NUR ---
PT PROVIDED [facility] REFERR[facility].
== END 2019-07-23 04:17 | disposition home or self-care (01) ==
LOC: ED 04:06
DX: F15.150 Other stimulant abuse with stimulant-induced psychotic disorder with delusions (principal); F17.200 Nicotine dependence, unspecified, uncomplicated; Z72.9 Problem related to lifestyle, unspecified
CPT/HCPCS: 99281